=== PATIENT | male | born 1975 | race Caucasian/White ===

== ENCOUNTER 2020-10-19 08:08 | Emergency (ER) | payer OTHER ==
[~2020-10-19] VITALS: Ht 165.1 cm; Wt 75.0 kg
[2020-10-19] MEDS ORDERED: ACETAMINOPHEN 325 MG TAB PO ONE (08:45)
[2020-10-19 09:04] LABS: BASO % 0.2 % (0.0-1.0); HEMATOCRIT 44.7 % (42.0-52.0); HEMOGLOBIN 15.1 g/dl (13.5-17.5); LYMPH # 0.6 10^3/uL (1.5-5.0); LYMPH % 12.5 % (24.0-44.0); MEAN CORPUSCULAR HEMOGLOBIN 31.2 pg (27.0-33.0); MEAN CORPUSCULAR HGB CONC 33.8 g/dl (32.0-36.5); MEAN CORPUSCULAR VOLUME 92.4 fl (80.0-96.0); MONO # 0.1 10^3/uL (0.0-0.8); MONO % 1.3 % (2.0-8.0); NEUTROPHILS # 4.1 10^3/uL (1.5-8.5); NEUTROPHILS % 85.2 % (36.0-66.0); PLATELET COUNT, AUTOMATED 154 10^3/uL (150-450); RED BLOOD COUNT 4.84 10^6/uL (4.30-6.10); WHITE BLOOD COUNT 4.8 10^3/uL (4.0-10.0)
[2020-10-19 09:22] LABS: BLOOD UREA NITROGEN 15 MG/DL (7-18); CALCIUM LEVEL 8.8 MG/DL (8.5-10.1); CARBON DIOXIDE LEVEL 21 MEQ/L (21-32); CHLORIDE LEVEL 109 MEQ/L (98-107); CREATININE FOR GFR 1.13 MG/DL (0.70-1.30); GLOMERULAR FILTRATION RATE > 60.0 (>60); GLUCOSE, FASTING 166 MG/DL (70-100); POTASSIUM SERUM 3.9 MEQ/L (3.5-5.1); SODIUM LEVEL 141 MEQ/L (136-145)
--- NOTE | 2020-10-19 09:27 | REP ---
INDICATION: FUO. COMPARISON: None. TECHNIQUE: AP portable FINDINGS: The lung rabago are adequately inflated without pleural effusion, dense consolidation, parenchymal mass or pulmonary nodule. The heart is not enlarged. There is no widening of the mediastinum. Hilar contour symmetric and normal. The aorta and airway were unremarkable. The bones are intact. There is no free air under the diaphragm. Appears to be a clothing artifact or hair Braid projecting over the right neck base supraclavicular region. Visualized bones are unremarkable. IMPRESSION: 1. Negative AP portable chest. <Electronically signed by Elmo Mejia > 10/19/20 0916
[2020-10-19 09:37] LABS: RSV AMPLIFICATION NEGATIVE (NEGATIVE)
[2020-10-19] MEDS ORDERED: NS 1,000 ML IV ONE (11:10)
[2020-10-19] MEDS ORDERED: CIPROFLOXACIN 400 MG in IV 1 EA IV ONE (11:10)
[2020-10-19] MEDS ORDERED: IBUPROFEN 600MG TAB PO ONE (11:10)
--- NOTE | 2020-10-19 11:50 | REP ---
INDICATION: r/o obstructive pyelonephritis. COMPARISON: None. TECHNIQUE: Noncontrast CT with coronal and sagittal soft tissue reconstructions. FINDINGS: CT abdomen: Lung bases are without acute findings. The heart is not enlarged. There is no pericardial thickening or effusion. I see no hiatal hernia there is diffuse fatty infiltration of the liver without hepatomegaly, focal hepatic lesion or intrahepatic biliary dilatation. There is some minor focal fat sparing in the liver adjacent to the gallbladder fossa which is a common finding in fatty liver. The gallbladder is without calcified stone or mass pancreas, adrenal glands, stomach and spleen are unremarkable. The kidneys show no stone, hydronephrosis or mass. There only genius and attenuation and show no inflammatory change in the perinephric or periureteral fat. No hydronephrosis hydroureter or ureteral stone on either side. No sign of colitis or diverticulitis. Mesentery shows some nonspecific inflammatory changes in the fat adjacent to some small bowel loops in the left upper quadrant there is no perforation, abscess or free air visible no colitis or diverticulitis. The colon in the abdomen proper and the appendix are seen and normal. Bone windows show lumbar and lower thoracic spine and their posterior elements without acute finding. Visualized ribs intact. CT pelvis: Sacrum, SI joints, pelvis and hips are without any definite acute bony abnormality. There is no ventral or inguinal hernia nor inguinal adenopathy. Stool and gas in the left colon and rectosigmoid without sign of colitis or diverticulitis. The abdominal portions of the colon and small bowel loops without dilatation or obstruction. The bladder without distention, it shows no stone or mass. Multiple calcifications within the prostate from prior inflammatory process. Soft tissue density posteriorly buttocks adjacent to the posteroinferior margins of the inferior pubic rami right greater than left with stranding towards the rectum on the right. I could not exclude the perianal fistula. Please examine clinically. IMPRESSION: 1. Fatty infiltration of the liver without hepatic mass, hepatomegaly, ascites or liver cysts. Gallbladder without calcified stone. Adrenal glands, kidneys, pancreas and spleen unremarkable. 2. No ascites or perforation in the abdomen or pelvis. There are some inflammatory changes in a nonspecific pattern in the mesentery left upper quadrant adjacent some small bowel loops without dilatation or wall thickening. This may reflect some mild mesenteritis or effect of gastroenteritis. 3. The colon and appendix within the abdomen were unremarkable as is the remainder of the colon extending to the rectum. However there appear to be some soft tissue densities posteriorly in the buttocks with extension toward the anal rectal junction on the right. I could not exclude a perianal fistula. This needs clinical evaluation. No other significant finding. <Electronically signed by Elmo Mejia > 10/19/20 1147
[2020-10-19 14:39] VITALS: BP 112/67
[2020-10-19] MEDS ORDERED: CIPR-249 PO (15:17)
== END 2020-10-19 15:35 | disposition home or self-care (01) ==
LOC: M ED 08:08
DX: N39.0 Urinary tract infection, site not specified (principal); N41.0 Acute prostatitis; R00.0 Tachycardia, unspecified; K76.0 Fatty (change of) liver, not elsewhere classified
CPT/HCPCS: 71045; 74176; 80048; 81001; 83605; 85025; 87040; 87077; 87088; 87186; 87631; 96361; 96365; 99284; J0744